=== PATIENT | female | born 1960 | race Caucasian/White ===

== ENCOUNTER 2016-11-14 18:15 | Emergency (ER) | payer BC ==
--- NOTE | 2016-11-14 19:20 | Emergency Department Record ---
History of Present Illness - General Chief Complaint: Fall Injury Stated Complaint: FALL INJURY Time Seen by Provider: 11/14/16 19:20 Source: Patient Mode of Arrival: Ambulatory Limitations: No limitations - History of Present Illness Initial Comments: The patient is here due to R shoulder pain. She was walking outside and tripped and fell forward landing out her outstretched arms. She then felt a "pop" and pain in the R shoulder. There was no direct trauma to the shoulder. She also denies hitting her head or any other injury. 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: No Place Fall Occurred: Home Severity scale (1-10): >10 Quality: Aching Associated Symptoms: Denies - Alison Coma Scale Eye Response: (4) Open spontaneously Motor Response: (6) Obeys commands Verbal Response: (5) Oriented Alison Total: 15 - Related Data Home Medications Medication Instructions Recorded Confirmed Last Taken Cholecalciferol (Vitamin D3) 5,000 unit PO DAILY 11/14/16 11/14/16 11/14/16 [Vitamin D3] Cranberry 400 mg PO DAILY 11/14/16 11/14/16 11/14/16 Cyanocobalamin (Vitamin B-12) 1,000 mcg PO DAILY 11/14/16 11/14/16 11/14/16 [Vitamin B-12] Duloxetine HCl [Cymbalta] 60 mg PO DAILY 11/14/16 11/14/16 11/14/16 Levothyroxine Sodium [Synthroid] 1 tab PO DAILY 11/14/16 11/14/16 11/14/16 Multivitamin [Multi-Vitamin Daily] 1 each PO DAILY 11/14/16 11/14/16 11/14/16 Quetiapine Fumarate [Seroquel] 50 mg PO QHS 11/14/16 11/14/16 11/13/16 Vitamin C/Biotin [Hair, Skin and 1 tab PO DAILY 11/14/16 11/14/16 11/14/16 Nails Gummies] Allergies Allergy/AdvReac Type Severity Reaction Status Date / Time Sulfa (Sulfonamide Allergy HIVES Verified 11/14/16 19:19 Antibiotics) Travel Screening - Travel/Exposure Within Last 30 Days Have you traveled within the last 30 days?: No - Travel/Exposure Within Last Year Have you traveled outside the [place] in the last year?: No - Additonal Travel Details Have you been exposed to anyone with a communicable illness?: No Review of Systems Constitutional: Denies: Chills, Fever Eyes: Denies: Eye discharge ENT: Denies: Congestion Respiratory: Denies: Cough Past Medical History - SOCIAL HISTORY Smoking Status: Never smoker Alcohol Use: Occassional Drug Use: None - RESPIRATORY Hx Respiratory Disorders: Yes Hx Sleep Apnea: Yes Hx of CPAP: Yes - CARDIOVASCULAR Hx Cardio Disorders: No - NEURO Hx Neuro Disorders: Yes Hx Headaches: Yes Hx of Migraines: Yes - GI Hx GI Disorders: Yes Comment:: Gastro bypass - Hx Genitourinary Disorders: No - ENDOCRINE Hx Endocrine Disorders: Yes Hx Thyroid Disease: Yes - MUSCULOSKELETAL Hx Musculoskeletal Disorders: Yes - PSYCH Hx Behavior Problems: Yes Hx Depression: Yes - HEMATOLOGY/ONCOLOGY Hx Hematology/Oncology Disorders: Yes Hx Bruising: Yes Family Medical History Any Significant Family History?: No Hx Cancer: Father *Cancer Comment: colon cancer Hx Heart Disease: Mother Physical Exam - General General Appearance: Alert, Oriented x3, Cooperative, No acute distress - Head Head exam: Atraumatic, Normocephalic, Normal inspection - Eye Eye exam: Normal appearance, PERRL - ENT Throat exam: Normal inspection. negative: Tonsillar erythema, Tonsillar exudate - Neck Neck exam: Normal inspection, Full ROM. negative: Tenderness - Respiratory Respiratory exam: Normal lung sounds bilaterally. negative: Respiratory distress - Cardiovascular Cardiovascular Exam: Regular rate, Normal rhythm, Normal heart sounds - GI/Abdominal GI/Abdominal exam: Soft, Normal bowel sounds. negative: Distended, Tenderness - Extremities Extremities exam: Normal inspection, Normal capillary refill, Tenderness (There is diffuse R shoulder and humerus tenderness.), Other (The R arm is NVI with normal sensation and equal brachial pulses.). negative: Full ROM, Joint swelling - Neurological Neurological exam: Alert, Normal gait. negative: Abnormal gait, Motor sensory deficit Course Vital Signs 11/14/16 19:11 Temperature 98.3 F Pulse Rate 68 Respiratory 16 Rate Blood Pressure 142/91 Pulse Ox 97 - Reevaluation(s) Reevaluation #1: The patient is resting comfortably. I did discuss the xray results with the patient and the need for transfer for Ortho Consultation. The would like to go to [facility] so I did discuss the case with Dr. Davis (Ortho) and he does accept the patient to the Hospital. He would like the patient to go to the ER so I did discuss the case with DR. Barragan and she accepts the patient in an ER to ER transfer. 11/14/16 20:06 Medical Decision Making - Data Complexity MDM Data: X-Ray Ordered and/or Reviewed - Radiology Data Radiology results: Report reviewed (R Humerus: Spiral proximal humerus fx with 30 degrees of angulation on the anterior film.) Disposition Disposition: Transfer Clinical Impression: Fracture, humerus Disposition: Acute Care Hospital Transfer Transfer To: [facility] ED Reason For Transfer: Fracture Accepting Physician: Lisseth Time Discussed w/Accepting Physician: 20:06 Condition: (2) Stable Forms: Patient Portal Access Time of Disposition: 20:06
[2016-11-14] MEDS ORDERED: ONDANSETRON HCL IV 4 MG/2 ML VIAL IVP ONE (19:53)
[2016-11-14] MEDS ORDERED: HYDROMORPHONE HCL 1 MG/ML CPJ IVP ONE ×2 (19:53→20:21)
== END 2016-11-14 20:33 | disposition short-term general hospital (02) ==
LOC: ER 18:15
DX: S42.201A Unspecified fracture of upper end of right humerus, initial encounter for closed fracture (principal); M25.511 Pain in right shoulder; W18.09XA Striking against other object with subsequent fall, initial encounter; Y92.009 Unspecified place in unspecified non-institutional (private) residence as the place of occurrence of the external cause
CPT/HCPCS: 99285 ×2; 96374; 96375; 73060; 73030; J2405; J1170

== ENCOUNTER 2017-12-04 17:58 | Emergency (ER) | payer BC ==
[2017-12-04] MEDS ORDERED: DIAZEPAM 5 MG TABLET PO ONE (18:39)
--- NOTE | 2017-12-04 18:45 | Emergency Department Record ---
History of Present Illness - General Chief Complaint: Dizziness Stated Complaint: DIZINESS Time Seen by Provider: 12/04/17 18:33 Source: Patient Mode of Arrival: Ambulatory Limitations: No limitations - History of Present Illness Initial Comments: 57 yo female presents to ED for evaluation of intermittent vertigo symptoms for the past 2 months. Patient reports a short (< 1 hour) episode in September, again in October, and again over the past 2 days. Patient saw her PCP for her symptoms yesterday, was told she may have an ear infection and started on Amoxicillin and Antivert for her symptoms. Patient reports that turning of head makes her symptoms worse, also reports that she struck her head 2 weeks ago during an episode without LOC, but reports continued headache symptoms to the posterior scalp following her fall. Patient reports a history of CAD s/p bypass surgery, denies history of anticoagulation use or arrhythmias. MD Complaint: Dizziness Onset/Timin -: Hour(s) Timing: Gradual onset Description: "Room spinning" History of Same: Yes History of Trauma: No Severity: Moderate Improves With: Nothing Worsens With: Nothing - Alison Coma Scale Eye Response: (4) Open spontaneously Motor Response: (6) Obeys commands Verbal Response: (5) Oriented [place] Total: 15 - Related Data Home Medications Medication Instructions Recorded Confirmed Last Taken Amoxicillin/Potassium Clav 875 mg PO BID 12/04/17 12/04/17 12/04/17 [Augmentin 875Mg/125Mg] Previous Rx's Medication Instructions Recorded Diazepam [Valium] 5 mg PO Q8H PRN #15 tab 12/04/17 Allergies Allergy/AdvReac Type Severity Reaction Status Date / Time Sulfa (Sulfonamide Allergy HIVES Verified 12/04/17 18:26 Antibiotics) Travel Screening - Travel/Exposure Within Last 30 Days Have you traveled within the last 30 days?: No - Travel/Exposure Within Last Year Have you traveled outside the [place] in the last year?: No - Additonal Travel Details Have you been exposed to anyone with a communicable illness?: No - Travel Symptoms Symptom Screening: None Review of Systems Constitutional: Denies: Chills, Fever, Malaise, Night sweats Eyes: Denies: Eye discharge, Eye pain ENT: Denies: Congestion, Ear pain, Epistaxis Respiratory: Denies: Cough, Dyspnea Cardiovascular: Denies: Chest pain, Dyspnea on exertion Endocrine: Denies: Fatigue, Heat or cold intolerance Gastrointestinal: Denies: Abdominal pain, Nausea, Vomiting Genitourinary: Denies: Incontinence, Retention Musculoskeletal: Denies: Arthralgia, Back pain, Gout, Joint swelling Skin: Denies: Bruising, Change in color Neurological: Reports: Headache, Vertigo. Denies: Abnormal gait, Confusion, Numbness, Weakness Psychiatric: Denies: Anxiety Hematological/Lymphatic: Denies: Anemia, Blood Clots Past Medical History - SOCIAL HISTORY Smoking Status: Never smoker Alcohol Use: None Drug Use: None - RESPIRATORY Hx Respiratory Disorders: Yes Hx Sleep Apnea: Yes Hx of CPAP: Yes - CARDIOVASCULAR Hx Cardio Disorders: No - NEURO Hx Neuro Disorders: Yes Hx Headaches: Yes Hx of Migraines: Yes - GI Hx GI Disorders: Yes Comment:: Gastro bypass - Hx Genitourinary Disorders: No - ENDOCRINE Hx Endocrine Disorders: Yes Hx Thyroid Disease: Yes - MUSCULOSKELETAL Hx Musculoskeletal Disorders: Yes - PSYCH Hx Behavior Problems: Yes Hx Depression: Yes - HEMATOLOGY/ONCOLOGY Hx Hematology/Oncology Disorders: Yes Hx Bruising: Yes Family Medical History Any Significant Family History?: Yes Hx Cancer: Father *Cancer Comment: colon cancer Hx Heart Disease: Mother Physical Exam - General General Appearance: Alert, Oriented x3, Cooperative, Mild distress Limitations: No limitations - Head Head exam: Atraumatic, Normocephalic, Normal inspection Head exam detail: negative: Abrasion, Contusion, Ernandez's sign, General tenderness, Hematoma, Laceration - Eye Eye exam: Nystagmus (fast beat to the left, also worsens her vertigo symptoms). negative: Conjunctival injection, Periorbital swelling, Periorbital tenderness - ENT Ear exam: Other (TMs appear mildly dark, mild retraction of the TMs bilaterally) . negative: Auricular hematoma, Auricular trauma Nasal Exam: negative: Active bleeding, Discharge, Dried blood, Foreign body Mouth exam: negative: Drooling, Laceration, Tongue elevation - Neck Neck exam: Normal inspection. negative: Meningismus, Tenderness - Respiratory Respiratory exam: Normal lung sounds bilaterally. negative: Respiratory distress, Rhonchi, Stridor, Wheezes - Cardiovascular Cardiovascular Exam: Regular rate, Normal rhythm, Normal heart sounds - GI/Abdominal GI/Abdominal exam: Soft. negative: Distended, Rebound, Rigid, Tenderness - Rectal Rectal exam: Deferred - exam: Deferred - Extremities Extremities exam: Normal inspection. negative: Pedal edema, Tenderness - Back Back exam: Denies: CVA tenderness (R), CVA tenderness (L) - Neurological Neurological exam: Alert, CN II-XII intact, Oriented X3, Other (Patient is able to stand without ataxia, no neurological deficits on examination). negative: Motor sensory deficit - Psychiatric Psychiatric exam: Normal affect, Normal mood - Skin Skin exam: Normal color. negative: Abrasion Type of lesion: negative: abrasion Course Vital Signs 12/04/17 18:31 Temperature 98.4 F Pulse Rate 83 Respiratory 20 Rate Blood Pressure 145/85 Pulse Ox 96 - Reevaluation(s) Reevaluation #1: 12/04/17 18:53 EKG: NSR 75 Indeterminate axis, RBBB No acute ST-T wave changes are present Reevaluation #2: 12/04/17 19:44 Labs reviewed and re grossly unremarkable for an acute process. CT Brain: No acute process Reevaluation #3: 12/04/17 20:34 Patient reassessed, reports that she is feeling much better and is ambulating with steady gait around the ED. Patient appears stable for discharge at this time with treatment for peripheral vertigo as discussed with the patient. Medical Decision Making - Lab Data Result diagrams: 12/04/17 19:20 12/04/17 19:20 Disposition Disposition: Discharge Clinical Impression: Vertigo Disposition: Home, Self-Care Condition: (2) Stable Instructions: Vertigo (ED) Additional Instructions: Return to ED if your symptoms worsen or if you have any concerns. Valium as directed for vertigo symptoms. Follow-up with your family doctor in 3-5 days as directed. Prescriptions: Diazepam [Valium] 5 mg PO Q8H PRN #15 tab PRN Reason: Dizziness Forms: Patient Portal Access Time of Disposition: 20:28 Quality - Quality Measures Quality Measures: N/A - Blood Pressure Screening Does Patient Have Any of the Following: No Blood Pressure Classification: Pre-Hypertensive BP Reading Systolic Measurement: 145 Diastolic Measurement: 85 Screening for High Blood Pressure: < Pre-Hypertensive BP, F/U Documented > [ G8950] Pre-Hypertensive Follow-up Interventions: Referral to alternative/primary care provider.
[2017-12-04 19:24] LABS: BASO % 0.3 % (0-6); EOS % 3.9 % (0-6); GRAN % 73.6 % (47-80); HEMATOCRIT 44.3 % (35.0-47.0); HEMOGLOBIN 14.5 gm/dl (11.6-16.0); MEAN CELL VOLUME 90.2 fl (81-97); MEAN CORPUSCULAR HEMOGLOBIN 29.5 pg (27-33); MEAN CORPUSCULAR HGB CONC 32.7 g/dl (32-36); MEAN PLATELET VOLUME 9.7 fl (7.4-10.4); MONO % 5.2 % (0-9); PLATELET COUNT 298 K/uL (130-400); RED BLOOD COUNT 4.91 M/uL (3.80-5.40); RED CELL DISTRIBUTION WIDTH 13.2 % (11.5-14.5); WHITE BLOOD COUNT W/O DIFF 13.1 K/uL (4.2-12.2)
[2017-12-04 19:36] LABS: BLOOD UREA NITROGEN 13 mg/dL (6-20)
[2017-12-04 19:37] LABS: CREATININE 0.4 mg/dL (0.5-0.9); EST GLOMERULAR FILTRATION RATE > 60 mL/min; TOTAL PROTEIN 6.9 g/dL (6.6-8.7)
[2017-12-04 19:39] LABS: GLUCOSE,RANDOM 84 mg/dL (74-109)
[2017-12-04 19:42] LABS: ALB/GLOB RATIO 1.7 (1.1-1.8); ALBUMIN 4.3 g/dL (4.0-5.0); ALKALINE PHOSPHATASE 81 U/L (35-104); ALT/SGPT 18 U/L (<33); AST/SGOT 20 U/L (10.0-35.0)
--- NOTE | 2017-12-05 10:59 | CT SCAN REPORT ---
EXAM: CT SCAN OF THE BRAIN WITHOUT CONTRAST HISTORY: DIZZINESS. TECHNIQUE: Standard CT imaging of the brain was performed in the axial plane without contrast. Additional coronal and sagittal reformatted images were also performed. Comparison: None. Encounter: Not applicable. FINDINGS: The ventricles and subarachnoid spaces are normal. There is no mass , mass effect, intracranial hemorrhage, visible acute infarct, or abnormal extraaxial fluid. The skull is intact. The orbits, sinuses, and mastoids are normal. The middle ear cavities are clear. IMPRESSION: NEGATIVE NONCONTRAST CT SCAN OF THE BRAIN. JOB NUMBER: [id number] MTDD
== END 2017-12-04 20:40 | disposition home or self-care (01) ==
LOC: ER 17:58
DX: H81.392 Other peripheral vertigo, left ear (principal); R51 Headache
CPT/HCPCS: 99284 ×2; 85025; 80053; 70450; 93005; 93010; J3490

== ENCOUNTER 2018-02-07 13:27 | Emergency (ER) | payer BC ==
[2018-02-07] MEDS ORDERED: ASPIRIN 81 MG CHEWABLE TABLET PO ONE (13:42)
[2018-02-07] MEDS: NITROGLYCERIN 0.4MG SL TABLET #25 BTL SL PRN ×3 (14:00→14:15)
[2018-02-07 14:02] LABS: BASO % 0.2 % (0-6); EOS % 6.3 % (0-6); GRAN % 71.2 % (47-80); HEMATOCRIT 48.4 % (35.0-47.0); HEMOGLOBIN 15.7 gm/dl (11.6-16.0); LYMPH % 16.7 % (16-45); MEAN CELL VOLUME 91.5 fl (81-97); MEAN CORPUSCULAR HEMOGLOBIN 29.7 pg (27-33); MEAN CORPUSCULAR HGB CONC 32.4 g/dl (32-36); MEAN PLATELET VOLUME 10.4 fl (7.4-10.4); MONO % 5.6 % (0-9); PLATELET COUNT 364 K/uL (130-400); RED BLOOD COUNT 5.29 M/uL (3.80-5.40); RED CELL DISTRIBUTION WIDTH 14.2 % (11.5-14.5); WHITE BLOOD COUNT W/O DIFF 12.6 K/uL (4.2-12.2)
[2018-02-07 14:24] LABS: BLOOD UREA NITROGEN 12 mg/dL (6-20); CREATININE 0.6 mg/dL (0.5-0.9); EST GLOMERULAR FILTRATION RATE > 60 mL/min
[2018-02-07] MEDS ORDERED: ACETAMINOPHEN 500 MG TABLET PO ONE (14:25)
--- NOTE | 2018-02-07 14:25 | Emergency Department Record ---
History of Present Illness - General Chief Complaint: Chest Pain Stated Complaint: CHEST PAIN Time Seen by Provider: 02/07/18 13:36 Source: Patient Mode of Arrival: Ambulatory Limitations: No limitations - History of Present Illness Initial Comments: pt had a pacer placed 2 days ago. then last night developed cp and back pain that is sharp and stabbing. MD Complaint: Chest pain Onset/Timin -: Days(s) Pain Location: Substernal Pain Radiation: Back Severity scale (1-10): 7 Quality: Aching Consistency: Constant Worsens With: Movement - Related Data Home Medications Medication Instructions Recorded Confirmed Last Taken Hydrocodone/Acetaminophen [[place] 1 each PO QID PRN 02/07/18 02/07/18 1 Day Ago 5-325 Tablet] ~02/06/18 Levothyroxine Sodium [Synthroid] 137 mcg PO DAILY 02/07/18 02/07/18 1 Day Ago ~02/06/18 Allergies Allergy/AdvReac Type Severity Reaction Status Date / Time Sulfa (Sulfonamide Allergy HIVES Verified 02/07/18 13:44 Antibiotics) Travel Screening - Travel/Exposure Within Last 30 Days Have you traveled within the last 30 days?: No - Travel/Exposure Within Last Year Have you traveled outside the [place] in the last year?: No - Additonal Travel Details Have you been exposed to anyone with a communicable illness?: No - Travel Symptoms Symptom Screening: None Review of Systems Reviewed: No additional complaints except as noted below Constitutional: Reports: As per HPI. Denies: Chills, Fever, Malaise, Night sweats, Weakness, Weight change Eyes: Reports: As per HPI. Denies: Eye discharge, Eye pain, Photophobia, Vision change ENT: Reports: As per HPI. Denies: Congestion, Dental pain, Ear pain, Epistaxis , Hearing loss, Throat pain Respiratory: Reports: As per HPI. Denies: Cough, Dyspnea, Hemoptysis, Stridor, Wheezes Cardiovascular: Reports: As per HPI, Chest pain. Denies: Arrhythmia, Dyspnea on exertion, Edema, Murmurs, Orthopnea, Palpitations, Paroxysmal nocturnal dyspnea, Rheumatic Fever, Syncope Endocrine: Reports: As per HPI. Denies: Fatigue, Heat or cold intolerance, Polydipsia, Polyuria Gastrointestinal: Reports: As per HPI. Denies: Abdominal pain, Constipation, Diarrhea, Hematemesis, Hematochezia, Melena, Nausea, Vomiting Genitourinary: Reports: As per HPI. Denies: Abnormal menses, Discharge, Dyspareunia, Dysuria, Frequency, Hematuria, Incontinence, Retention, Urgency Musculoskeletal: Reports: As per HPI. Denies: Arthralgia, Back pain, Gout, Joint swelling, Myalgia, Neck pain Skin: Reports: As per HPI. Denies: Bruising, Change in color, Change in hair/ nails, Lesions, Pruritus, Rash Neurological: Reports: As per HPI. Denies: Abnormal gait, Confusion, Headache, Numbness, Paresthesias, Seizure, Tingling, Tremors, Vertigo, Weakness Psychiatric: Reports: As per HPI. Denies: Anxiety, Auditory hallucinations, Depression, Homicidal thoughts, Suicidal thoughts, Visual hallucinations Hematological/Lymphatic: Reports: As per HPI. Denies: Anemia, Blood Clots, Easy bleeding, Easy bruising, Swollen glands Past Medical History - SOCIAL HISTORY Smoking Status: Never smoker Alcohol Use: None Drug Use: None - RESPIRATORY Hx Respiratory Disorders: Yes Hx Sleep Apnea: Yes Hx of CPAP: Yes - CARDIOVASCULAR Hx Cardio Disorders: No Hx Irregular Heartbeat: Yes (complete heart block) Hx Pacemaker/Defib: Yes (new, 2 days old) - NEURO Hx Neuro Disorders: Yes Hx Headaches: Yes Hx of Migraines: Yes - GI Hx GI Disorders: Yes Comment:: Gastro bypass - Hx Genitourinary Disorders: No - ENDOCRINE Hx Endocrine Disorders: Yes Hx Thyroid Disease: Yes - MUSCULOSKELETAL Hx Musculoskeletal Disorders: Yes - PSYCH Hx Behavior Problems: Yes Hx Depression: Yes - HEMATOLOGY/ONCOLOGY Hx Hematology/Oncology Disorders: Yes Hx Bruising: Yes Family Medical History Any Significant Family History?: Yes Hx Cancer: Father *Cancer Comment: colon cancer Hx Heart Disease: Mother Physical Exam - General General Appearance: Alert, Oriented x3, Cooperative, Mild distress - Head Head exam: Normal inspection - Eye Eye exam: Normal appearance, PERRL, EOMI Pupils: Normal accommodation - ENT ENT exam: Normal exam, Mucous membranes moist, Normal external ear exam, Normal orophraynx Ear exam: Normal external inspection. negative: External canal tenderness Nasal Exam: Normal inspection. negative: Discharge, Sinus tenderness Mouth exam: Normal external inspection, Tongue normal Teeth exam: Normal inspection. negative: Dental caries Throat exam: Normal inspection. negative: Tonsillar erythema, Tonsillar exudate - Neck Neck exam: Normal inspection, Full ROM. negative: Tenderness - Respiratory Respiratory exam: Normal lung sounds bilaterally, Chest wall tenderness. negative: Accessory muscle use, Respiratory distress - Cardiovascular Cardiovascular Exam: Regular rate, Normal rhythm, Normal heart sounds - GI/Abdominal GI/Abdominal exam: Soft, Normal bowel sounds. negative: Tenderness - Rectal Rectal exam: Deferred - exam: Deferred - Extremities Extremities exam: Normal inspection, Full ROM, Normal capillary refill. negative: Tenderness - Back Back exam: Reports: Normal inspection, Full ROM. Denies: Muscle spasm, Rash noted, Tenderness - Neurological Neurological exam: Alert, CN II-XII intact, Normal gait, Oriented X3 - Psychiatric Psychiatric exam: Normal affect, Normal mood - Skin Skin exam: Dry, Intact, Normal color, Warm Course Vital Signs 02/07/18 02/07/18 02/07/18 13:36 14:01 14:05 Temperature 98.1 F Pulse Rate 60 Pulse Rate [ 61 60 Pulse Ox Probe] Respiratory 20 18 16 Rate Blood Pressure 150/93 Blood Pressure 143/80 129/73 [Right Arm] Pulse Ox 97 96 95 02/07/18 02/07/18 14:12 14:17 Temperature Pulse Rate Pulse Rate [ 60 60 Pulse Ox Probe] Respiratory 16 18 Rate Blood Pressure Blood Pressure 128/71 127/78 [Right Arm] Pulse Ox 93 L 94 L - Reevaluation(s) Reevaluation #1: 02/07/18 17:21 ntg took pain down from an 8 to a 2 Reevaluation #2: 02/07/18 1 02/07/18 18:43 2nd troponin neg persaud accepted Medical Decision Making - Lab Data Result diagrams: 02/07/18 13:25 02/07/18 13:25 Lab Results 02/07/18 Range/Units 13:25 WBC 12.6 H (4.2-12.2) K/uL RBC 5.29 (3.80-5.40) M/uL Hgb 15.7 (11.6-16.0) gm/dl Hct 48.4 H (35.0-47.0) % MCV 91.5 (81-97) fl MCH 29.7 (27-33) pg MCHC 32.4 (32-36) g/dl RDW 14.2 (11.5-14.5) % Plt Count 364 (130-400) K/uL MPV 10.4 (7.4-10.4) fl Gran % 71.2 (47-80) % Lymphocytes % 16.7 (16-45) % Monocytes % 5.6 (0-9) % Eosinophils % 6.3 H (0-6) % Basophils % 0.2 (0-6) % Disposition Disposition: Transfer Clinical Impression: Chest pain Qualifiers: Chest pain type: unspecified Qualified Code(s): R07.9 - Chest pain, unspecified Disposition: Acute Care Hospital Transfer Transfer To: [facility] Reason For Transfer: chest pain, needs software engineering specialist Accepting Physician: dr persaud Time Discussed w/Accepting Physician: 18:44 Forms: Patient Portal Access Quality - Quality Measures Quality Measures: N/A - Blood Pressure Screening Does Patient Have Any of the Following: No Blood Pressure Classification: Hypertensive Reading Systolic Measurement: 150 Diastolic Measurement: 93 Screening for High Blood Pressure: < First Hypertensive BP, F/U Documented > [ G8950] First Hypertensive Follow-up Interventions: Follow-up with rescreen GT 1 day and LT 4 weeks.
[2018-02-07 14:27] LABS: GLUCOSE,RANDOM 111 mg/dL (74-109)
[2018-02-07 14:30] LABS: CREATINE PHOSPHOKINASE 267 U/L (26-192)
[2018-02-07 14:31] LABS: CKMB 4.3 ng/mL (<3.77)
[2018-02-07 18:19] LABS: CKMB 3.6 ng/mL (<3.77)
[2018-02-07] MEDS ORDERED: MORPHINE SULFATE 4MG/ML PREFILLED SYRINGE IVP ONE (19:05)
--- NOTE | 2018-02-08 23:29 | CT ANGIOGRAM REPORT ---
EXAM: CT ANGIOGRAM CHEST CTA w contrast HISTORY: CHEST PAIN. DIFFICULTY IN BREATHING. TECHNIQUE: CTA of the chest was performed after intravenous administration of 80 mL of Omnipaque-350 contrast material. Sagittal and coronal MIPs were performed on an independent workstation. FINDINGS: There is an indeterminate nodule in the right upper lobe measuring 5 mm. There is scarring in both lung bases. Partially visualized is a ventral wall hernia containing a loop of colon. No CTA findings suggestive of a pulmonary embolism. Small 6 mm noncalcified nodular density in the anterior right upper lobe. Three- month follow-up imaging is recommended. JOB NUMBER: [id number] MTDD
== END 2018-02-07 19:43 | disposition short-term general hospital (02) ==
LOC: ER 13:27
DX: R07.2 Precordial pain (principal); R79.82 Elevated C-reactive protein (CRP); R06.00 Dyspnea, unspecified; Z95.0 Presence of cardiac pacemaker
CPT/HCPCS: 71275; 80048; 82550; 82553; 84484; 85025; 85379; 93005; 93010; 96374; 99285; J2274

== ENCOUNTER 2019-09-18 13:27 | Emergency (ER) | payer BC ==
--- NOTE | 2019-09-18 13:51 | Emergency Department Record ---
History of Present Illness - General Chief complaint: Vomiting Stated complaint: VOMITING Time Seen by Provider: 09/18/19 13:39 Source: Patient Mode of Arrival: Ambulatory Limitations: No limitations - History of Present Illness Initial comments: The patient is here due to a one week hx of frequent nausea and vomiting mainly in the mornings. Today the vomiting worsened and now has been intermittent since 8am. She denies any fever, chills, diarrhea, AP, CP or SOB. The patient has had some mild dysuria and lower back pain. She does have a hx of multiple abdominal surgeries including gastric bypass. The patient has been eating relatively normally over the past week also and also having normal BM's. MD complaint: Nausea, Vomiting Onset/Timin -: Week(s) Description of Vomiting: Watery Radiation: Back Quality: Other Consistency: Intermittent Improves with: None Worsens with: Other Associated Symptoms: Dysuria - Related Data Previous Rx's Medication Instructions Recorded Ondansetron [Zofran Odt] 4 mg SL .Q4-6H PRN #12 tab.rapdis 09/18/19 Allergies Allergy/AdvReac Type Severity Reaction Status Date / Time Sulfa (Sulfonamide Allergy HIVES Verified 02/07/18 13:44 Antibiotics) Travel Screening - Travel/Exposure Within Last 30 Days Have you traveled within the last 30 days?: No Review of Systems Constitutional: Denies: Chills, Fever Eyes: Denies: Eye discharge ENT: Denies: Congestion Respiratory: Denies: Cough, Dyspnea Cardiovascular: Denies: Chest pain Endocrine: Denies: Fatigue Gastrointestinal: Reports: Nausea, Vomiting. Denies: Diarrhea Genitourinary: Reports: Dysuria Musculoskeletal: Denies: Arthralgia Skin: Denies: Bruising Past Medical History - SOCIAL HISTORY Smoking Status: Never smoker Alcohol Use: None - RESPIRATORY Hx Respiratory Disorders: Yes Hx Sleep Apnea: Yes Hx of CPAP: Yes - CARDIOVASCULAR Hx Cardio Disorders: No Hx Irregular Heartbeat: Yes (complete heart block) Hx Pacemaker/Defib: Yes (new, 2 days old) - NEURO Hx Neuro Disorders: Yes Hx Headaches: Yes Hx of Migraines: Yes - GI Hx GI Disorders: Yes Comment:: Gastro bypass - Hx Genitourinary Disorders: No - ENDOCRINE Hx Endocrine Disorders: Yes Hx Thyroid Disease: Yes - MUSCULOSKELETAL Hx Musculoskeletal Disorders: Yes - PSYCH Hx Behavior Problems: Yes Hx Depression: Yes - HEMATOLOGY/ONCOLOGY Hx Hematology/Oncology Disorders: Yes Hx Bruising: Yes Family Medical History Any Significant Family History?: Yes Hx Cancer: Father *Cancer Comment: colon cancer Hx Heart Disease: Mother Physical Exam - General General Appearance: Alert, Oriented x3, Cooperative, No acute distress - Head Head exam: Atraumatic, Normocephalic, Normal inspection - Eye Eye exam: Normal appearance, PERRL, EOMI - ENT Throat exam: Normal inspection. negative: Tonsillar erythema, Tonsillar exudate - Neck Neck exam: Normal inspection, Full ROM. negative: Tenderness - Respiratory Respiratory exam: Normal lung sounds bilaterally. negative: Respiratory distress - Cardiovascular Cardiovascular Exam: Regular rate, Normal rhythm, Normal heart sounds - GI/Abdominal GI/Abdominal exam: Soft, Normal bowel sounds. negative: Guarding, Rebound, Rigid, Tenderness - Extremities Extremities exam: Normal inspection, Full ROM, Normal capillary refill. negative: Tenderness - Back Back exam: Reports: Normal inspection. Denies: Vertebral tenderness - Neurological Neurological exam: Alert, Normal gait, Oriented X3. negative: Abnormal gait, Altered, Motor sensory deficit - Skin Skin exam: negative: Rash Course Vital Signs 09/18/19 13:33 Temperature 98.1 F Pulse Rate 74 Respiratory 20 Rate Blood Pressure 168/107 Pulse Ox 97 - Reevaluation(s) Reevaluation #1: The patient is doing a lot better at this time. She denies any nausea or abdominal pain. On exam her abdomen is very soft and nontender in all 4 quads. We will give the patient some water at this time. 09/18/19 14:38 Reevaluation #2: The patient is doing very well at this time and has no nausea or abdominal pain. She is drinking water with no issues and up walking with no problems or pain. I did discuss the neg workup including the lab work and UA. I did discuss the option of ordering an abdominal CT but strongly doubt an surgical pathology like an obstruction due to the fact the patient has been eating and having normal BM's and completely asymptomatic at this time with no pain or tenderness. We will refer the patient to GI if needed and give Zofran for home. She is to return to the ER for ANY worsening symptoms. 09/18/19 15:19 Medical Decision Making - Data Complexity MDM Data: Labs Ordered and/or Reviewed - Lab Data Result diagrams: 09/18/19 13:55 09/18/19 13:55 Disposition Disposition: Discharge Clinical Impression: Vomiting alone Disposition: Home, Self-Care Condition: (2) Stable Instructions: Acute Nausea and Vomiting (ED) Additional Instructions: Please continue your regular medicines and please use the Zofran for nausea. Please see Dr. Ko for consultation and for a possible EGD. Return to the ER for any pain, fever, or worsening vomiting. Prescriptions: Ondansetron [Zofran Odt] 4 mg SL .Q4-6H PRN #12 tab.rapdis PRN Reason: Nausea Referrals: [facility] [Provider Group] Forms: Patient Portal Access Time of Disposition: 15:18 Quality - Quality Measures Quality Measures: N/A - Blood Pressure Screening View Details: Yes Does Patient Have Any of the Following: Active Dx of HTN Blood Pressure Classification: Hypertensive Reading Systolic Measurement: 168 Diastolic Measurement: 107 Screening for High Blood Pressure: Patient Exclusion, Hx of HTN [[id number]]
[2019-09-18] MEDS: 0.9 % SODIUM CHLORIDE 1,000 ML BAG IV ONE (14:00)
[2019-09-18] MEDS: ONDANSETRON HCL IV 4 MG/2 ML VIAL IV ONE (14:00)
[2019-09-18 14:03] LABS: ABSOLUTE NEUTROPHIL COUNT 8.31; BASO % 0.2 % (0-6); EOS % 2.5 % (0-6); GRAN % 76.3 % (47-80); HEMATOCRIT 45.3 % (35.0-47.0); HEMOGLOBIN 14.4 gm/dl (11.6-16.0); LYMPH % 16.4 % (16-45); MEAN CELL VOLUME 91.1 fl (81-97); MEAN CORPUSCULAR HGB CONC 31.8 g/dl (32-36); MEAN PLATELET VOLUME 9.3 fl (7.4-10.4); MONO % 4.6 % (0-9); PLATELET COUNT 328 K/uL (130-400); RED BLOOD COUNT 4.97 M/uL (3.80-5.40); RED CELL DISTRIBUTION WIDTH 13.7 % (11.5-14.5); WHITE BLOOD COUNT W/O DIFF 10.9 K/uL (4.2-12.2)
[2019-09-18 14:13] LABS: BLOOD UREA NITROGEN 13 mg/dL (6-20); CREATININE 0.5 mg/dL (0.5-0.9); EST GLOMERULAR FILTRATION RATE > 60 mL/min
[2019-09-18 14:14] LABS: LIPASE 22 U/L (13-60); TOTAL PROTEIN 7.6 g/dL (6.6-8.7)
[2019-09-18 14:16] LABS: GLUCOSE,RANDOM 117 mg/dL (74-109)
[2019-09-18 14:18] LABS: ALT/SGPT 17 U/L (<33); AST/SGOT 21 U/L (10.0-35.0)
[2019-09-18 14:19] LABS: ALBUMIN 4.5 g/dL (4.0-5.0); ALKALINE PHOSPHATASE 94 U/L (35-104); BILIRUBIN,DIRECT < 0.2 mg/dL (0-0.3)
[2019-09-18 14:38] LABS: URINE APPEARANCE CLEAR; URINE BILIRUBIN NEGATIVE (NEGATIVE); URINE BLOOD NEGATIVE (NEGATIVE); URINE COLOR YELLOW; URINE GLUCOSE (UA) NEGATIVE (NEGATIVE); URINE KETONE NEGATIVE (NEGATIVE); URINE LEUKOCYTE ESTERASE NEGATIVE (NEGATIVE); URINE NITRITE NEGATIVE (NEGATIVE); URINE PROTEIN NEGATIVE (NEGATIVE)
== END 2019-09-18 15:35 | disposition home or self-care (01) ==
LOC: ER 13:27
DX: R11.2 Nausea with vomiting, unspecified (principal); R30.0 Dysuria; M54.5 Low back pain; I10 Essential (primary) hypertension
CPT/HCPCS: 80048; 80076; 81003; 83690; 85025; 96374; 99284; J2405; J7030